=== PATIENT | male | born 1940 | race Caucasian/White ===

== ENCOUNTER 2022-12-13 11:37 | Observation (INO) ==
--- NOTE | 2022-12-13 14:03 | EKG ---
Test Reason : WEAKNESS Blood Pressure : */* mmHG Vent. Rate : 66 BPM Atrial Rate : 66 BPM P-R Int : 156 ms QRS Dur : 96 ms QT Int : 426 ms P-R-T Axes : 6 -46 48 degrees QTc Int : 446 ms Normal sinus rhythm Left anterior fascicular block Minimal voltage criteria for LVH, may be normal variant ( R in aVL ) Septal infarct , age undetermined Abnormal ECG No previous ECGs available Confirmed by Ronald Chand ([id number]) on 12/13/2022 9:09:40 PM Referred By: Confirmed By: Ronald Chand
[2022-12-13 14:23] LABS: BASOPHILS % (AUTO) 0.7 % (0.2-1.0); EOSINOPHILS # (AUTO) 0.2 x10^3/uL (0.0-0.2); HEMATOCRIT 28.9 % (42.0-54.0); HEMOGLOBIN 9.2 g/dL (13.5-18.0); LYMPHOCYTES # (AUTO) 1.1 X10^3/uL (1.3-2.9); LYMPHOCYTES % (AUTO) 19.2 % (21.0-51.0); MEAN CORPUSCULAR HEMOGLOBIN 20.6 pg (27.0-34.0); MEAN CORPUSCULAR HGB CONC 31.7 g/dL (33.0-35.0); MEAN CORPUSCULAR VOLUME 64.9 fL (80.0-100.0); MEAN PLATELET VOLUME 8.6 fL (7.4-11.0); MONOCYTES # (AUTO) 0.5 x10^3/uL (0.3-0.8); MONOCYTES % (AUTO) 8.9 % (0.0-13.0); NEUTROPHILS # (AUTO) 3.8 x10^3/uL (2.2-4.8); NEUTROPHILS % (AUTO) 68.2 % (42.0-75.0); RED BLOOD COUNT 4.45 X10^6/uL (4.7-6.0); RED CELL DISTRIBUTION WIDTH 18.9 % (11.6-16.5); WHITE BLOOD COUNT 5.6 X10^3/uL (3.6-10.0)
[2022-12-13 14:27] VITALS: BMI 25.4
[2022-12-13 14:37] LABS: ALANINE AMINOTRANSFERASE 30 Units/L (12-78); ALBUMIN 3.6 g/dL (3.4-5.0); ALKALINE PHOSPHATASE 100 Units/L (46-116); ASPARTATE AMINO TRANSFERASE 19 Units/L (15-37); BLOOD UREA NITROGEN 15 mg/dL (7-18); CARBON DIOXIDE 25.2 mmol/L (21-32); CHLORIDE 108 mmol/L (98-107); COR NA(FOR HYPERGLY) 145 mmol/L (136-145); CREATINE KINASE 32 Units/L (39-308); CREATININE 1.05 mg/dL (0.70-1.30); SODIUM 145 mmol/L (136-145); TOTAL PROTEIN 6.7 g/dL (6.4-8.2); eGFR NON BLACK RACES > 60 (>60)
[2022-12-13 14:51] LABS: PLATELET MORPHOLOGY COMMENT NORMAL (NORMAL)
[2022-12-13 14:55] LABS: ANISOCYTOSIS SLIGHT; HYPOCHROMASIA 2+; MICROCYTOSIS 2+; OVALOCYTES PRESENT
[2022-12-13] MEDS: PROTONIX INJ 40 MG VIAL IVP SCH ×2 (15:06→20:33)
[2022-12-13] MEDS: NS 1,000 ML IV 1,000 ML IV SCH (15:06)
[2022-12-13] MEDS: PEPCID 20 MG VIAL 20 MG in NS 50 ML IV 50 ML IV SCH ×2 (15:06→20:33)
[2022-12-13 18:37] LABS: BILIRUBIN,URINE NEGATIVE (NEGATIVE); BLOOD/HEMOGLOBIN,URINE NEGATIVE (NEGATIVE); GLUCOSE, URINE NEGATIVE (NEGATIVE); KETONES,URINE NEGATIVE (NEGATIVE); LEUKOCYTE ESTERASE ,URINE NEGATIVE (NEGATIVE); NITRITES,URINE NEGATIVE (NEGATIVE); PROTEIN,URINE NEGATIVE (NEGATIVE); UROBILINOGEN,URINE NORMAL (NORMAL)
[2022-12-13 18:38] LABS: APPEARANCE,URINE CLEAR (CLEAR); COLOR,URINE YELLOW (YELLOW)
--- NOTE | 2022-12-13 21:22 | RAD ---
HISTORYShortness of breath relevant Clinical InformationSTUDYCHEST, 1 VIEWCOMPARISONNoneFINDINGSMinimal, linear airspace infiltrates are visible in the lung bases. The lungs are otherwise well inflated and grossly clear. No pneumothorax. Normal heart size.IMPRESSIONSubsegmental atelectasis versus scarring versus mild developing infiltrate noted in the lung bases.Electronically signed by: Ronald Gerardo (Dec 13, 2022 21:21:23)
[2022-12-14] MEDS: NS 1,000 ML IV 1,000 ML IV SCH ×3 (03:41→18:40)
[2022-12-14 06:43] LABS: BASOPHILS # (AUTO) 0.1 X10^3/uL (0.0-0.1); BASOPHILS % (AUTO) 0.9 % (0.2-1.0); EOSINOPHILS # (AUTO) 0.2 x10^3/uL (0.0-0.2); EOSINOPHILS % (AUTO) 3.7 % (0.9-2.9); HEMATOCRIT 26.5 % (42.0-54.0); HEMOGLOBIN 8.3 g/dL (13.5-18.0); LYMPHOCYTES # (AUTO) 1.1 X10^3/uL (1.3-2.9); LYMPHOCYTES % (AUTO) 18.2 % (21.0-51.0); MEAN CORPUSCULAR HEMOGLOBIN 20.3 pg (27.0-34.0); MEAN CORPUSCULAR HGB CONC 31.3 g/dL (33.0-35.0); MEAN CORPUSCULAR VOLUME 64.9 fL (80.0-100.0); MEAN PLATELET VOLUME 8.2 fL (7.4-11.0); MONOCYTES # (AUTO) 0.6 x10^3/uL (0.3-0.8); MONOCYTES % (AUTO) 9.6 % (0.0-13.0); NEUTROPHILS % (AUTO) 67.6 % (42.0-75.0); RED BLOOD COUNT 4.09 X10^6/uL (4.7-6.0); RED CELL DISTRIBUTION WIDTH 18.7 % (11.6-16.5); WHITE BLOOD COUNT 5.9 X10^3/uL (3.6-10.0)
[2022-12-14 07:02] LABS: ALANINE AMINOTRANSFERASE 25 Units/L (12-78); ALBUMIN 3.1 g/dL (3.4-5.0); ALKALINE PHOSPHATASE 88 Units/L (46-116); ASPARTATE AMINO TRANSFERASE 18 Units/L (15-37); BLOOD UREA NITROGEN 13 mg/dL (7-18); CALCIUM 8.4 mg/dL (8.5-10.1); CARBON DIOXIDE 25.8 mmol/L (21-32); CHLORIDE 110 mmol/L (98-107); COR CA(FOR HYPOALB) 9.1 mg/dL (8.5-10.1); CREATININE 0.97 mg/dL (0.70-1.30); SODIUM 144 mmol/L (136-145); TOTAL PROTEIN 5.8 g/dL (6.4-8.2); eGFR NON BLACK RACES > 60 (>60)
[2022-12-14 07:09] LABS: PLATELET MORPHOLOGY COMMENT NORMAL (NORMAL)
[2022-12-14 07:10] LABS: ANISOCYTOSIS SLIGHT; HYPOCHROMASIA 2+; MICROCYTOSIS 2+; OVALOCYTES PRESENT
[2022-12-14] MEDS: PROTONIX INJ 40 MG VIAL IVP SCH ×2 (08:24→20:18)
[2022-12-14] MEDS: PEPCID 20 MG VIAL 20 MG in NS 50 ML IV 50 ML IV SCH ×2 (08:24→20:18)
[2022-12-14] MEDS ORDERED: LASIX PO PRN (09:13)
[2022-12-14] MEDS ORDERED: MAXZIDE 37.5/25 MG PO PRN (09:13)
--- NOTE | 2022-12-14 11:14 | RAD ---
HISTORYSOBSTUDYAP chestCOMPARISONApril 2022FINDINGSPersistent minimal atelectasis in the lower lungs with normal heart size and clear upper lobes.IMPRESSIONNo change.Electronically signed by: GIANFRANOC TORRES (Dec 14, 2022 11:10:42)
[2022-12-14] MEDS: LOPRESSOR TAB 25 MG PO SCH ×2 (11:58→20:17)
[2022-12-14] MEDS: ZYLOPRIM PO SCH (11:59)
[2022-12-14] MEDS: ZyrTEC TAB 10 MG PO SCH (11:59)
[2022-12-14] MEDS ORDERED: LEVSIN/MAALOX/LIDOC VISC PO PRN (12:10)
--- NOTE | 2022-12-14 19:00 | DR.H&P ---
H&P - History & Physical for Day of: H&P Date: 12/13/22 - Chief Complaint Chief Complaint: WEAKNESS, FATIGUE, DARK/TARRY STOOLS - History of Present Illness History of Present Illness: IS A 82 YEAR OLD PATIENT OF OURS. HE WAS A DIRECT ADMISSION, OBSERVATION STATUS, FOR EVALUATION AND TREATMENT OF WEAKNESS, ANEMIA, FATIGUE, HX GI BLEED. PATIENT REPORTS HAVING DARK, TARRY STOOLS FOR SEVERAL WEEKS. WEAKNESS AND FATIGUE HAS BEEN ONGOING AND WORSENING SINCE JULY. HE HAS A PMH OF HTN, GERD, GOUT, UT, TINNITIS, HX PROSTATE CANCER. SURGICAL HX INCLUDES: HERNIA REPAIR, PROSTECTOMY, ANEURYSM REPAIR, CARDIAC STENTS. HE DENIES RECENT COLONOSCOPY OR EGD. ON ADMISSION TO THE HOSPITAL, HIS VITALS WERE: 97.6-80-18-100%-158/72. LABS WERE OBTAINED. WBC 5.6, RBC 4.45, HGB 9.2, HCT 28.9, PLT COUNT 261, SODIUM 145, POTASSIUM 3.9, CHLORIDE 108, BUN 15, CREATININE 1.05, GLUCOSE 119, CALCIUM 9.0, AST 19, ALT 30, ALK PHOS 100, CREATINE KINASE 32, TROPONIN 6.5, TOTAL PROTEIN 6.5, ALBUMIN 3.6. URINALYSIS WAS UNREMARKABLE, HOWEVER, A CULTURE WAS SET UP. STOOL WAS POSITIVE FOR FECAL OCCULT BLOOD. A CHEST XRAY WAS OBTAINED. IT REVEALED: Subsegmental atelectasis versus scarring versus mild developing infiltrate noted in the lung bases. EKG REVEALED NORMAL SINUS RHYTHM WITH HR 66. HE WAS STARTED ON NORMAL SALINE AT 75 ML/HR, PEPCID 20MG IV Q12H, PROTONIX 40MG IV Q12H, AND GI COCKTAIL 10ML QID. WE WILL RESUME HIS HOME MEDICATIONS OF ALLOPURINOL, ZYRTEC, LASIX PRN, LOPRESSOR, CRESTOR, AND MAXZIDE PRN.. WE WILL TRANSFUSE PACKED RED BLOOD CELLS IF HIS HEMOGLOBIN FALLS BELOW 7.0. WE WILL HAVE PHYSICAL THERAPY EVALUATE AND WORK WITH HIM. OTHERWISE, WE WILL FOLLOW-UP WITH AM LABS AND CONTINUE TO MONITOR. TIME SPENT ON CLINICAL ASSESSMENT, REVIEWING LABS AND IMAGING, DECISION MAKING, AND DOCUMENTATION GREATER THAN 75 MINUTES. - Past Medical History Past Medical History: Coronary Artery Disease, GERD, Gout, Hypertension, UT Additional Medical History: TINNITUS, HX PROSTATE CANCER - Past Surgical History Surgical History: AAA Repair, Angioplasty/Stents Additional Surgical History: HERNIA REPAIR, PROSTECTOMY - Family History Family Medical History: Hypertension - Social History Does patient currently use any type of tobacco product: No Have you used tobacco products in the last 12 months: No Type of Tobacco Use: Cigarettes Does any household member use tobacco: No Alcohol Use: None Drug Use: None - Medications Home Medications: No Known Drug Allergies [NKDA] Allergy (Verified 12/13/22 14:19) CONTINUE taking the following medications allopurinol 100 mg tablet 3 tab PO QDAY 12/13/22 [History] aspirin 81 mg capsule 81 mg PO QDAY 12/13/22 [History] cetirizine 10 mg tablet (Zyrtec) 10 mg PO QDAY PRN 12/13/22 [History] esomeprazole magnesium 40 mg capsule,delayed release 1 cap PO QDAY 12/13/22 [History] famotidine 20 mg tablet 20 mg PO BID 12/13/22 [History] furosemide 20 mg tablet 20 mg PO QDAY PRN Edema 12/13/22 [History] metoprolol tartrate 25 mg tablet 1 tab PO BID PRN HTN 12/13/22 [History] rosuvastatin 20 mg tablet 1 tab PO QPM 12/13/22 [History] triamterene 37.5 mg-hydrochlorothiazide 25 mg tablet 1 tab PO QDAY PRN HTN 12/13/22 [History] - Review of Systems Constitutional: Weakness Eyes: No Symptoms Reported ENT: No Symptoms Reported Respiratory: No Symptoms Reported Cardiovascular: No Symptoms Reported Gastrointestinal: Melena Genitourinary: No Symptoms Reported Musculoskeletal: No Symptoms Reported Skin: No Symptoms Reported Neurological: Weakness - Physical Exam Vital Signs: Temperature 98.2 F Pulse Rate [Left Radial] 58 Respiratory Rate 18 Blood Pressure [Left Arm] 150/72 O2 Sat by Pulse Oximetry 98 Oriented: Normal Eyes: Normal Ear: Normal Nose: Normal Throat: Normal Respiratory: Diminished Throughout Cardiovascular: Normal : Normal Auscultation: Bowel Sounds: Normal Palpation: Normal Tenderness: Normal Skin: Normal Musculoskeletal: Normal Psychiatric: Normal Mood Description: Calm Affect: Normal Speech Pattern: Clear - Assessment/Plan (1) GI bleed Qualifiers: GI bleed type/associated pathology: melena Qualified Code(s): K92.1 - Melena Status: Acute Plan: ADMIT, MONITOR H&H, TRANSFUSE PRBC IF HGB FALLS BELOW 7.0, NORMAL SALINE AT 75 ML/HR, PEPCID 20MG IV Q12H, PROTONIX 40MG IV Q12H, AND GI COCKTAIL 10ML QID. WE WILL RESUME HIS HOME MEDICATIONS OF ALLOPURINOL, ZYRTEC, LASIX PRN, LOPRESSOR, CRESTOR, AND MAXZIDE PRN. (2) Anemia Qualifiers: Anemia type: iron deficiency Iron deficiency anemia type: chronic blood loss Qualified Code(s): D50.0 - Iron deficiency anemia secondary to blood loss (chronic) Status: Acute (3) Generalized weakness Status: Acute (4) Fatigue Qualifiers: Fatigue type: unspecified Qualified Code(s): R53.83 - Other fatigue Status: Acute (5) HTN (hypertension) Qualifiers: Hypertension type: primary hypertension Qualified Code(s): I10 - Essential (primary) hypertension Status: Chronic (6) GERD (gastroesophageal reflux disease) Qualifiers: Esophagitis presence: esophagitis presence not specified Qualified Code(s): K21.9 - Gastro-esophageal reflux disease without esophagitis Status: Chronic (7) Gout Qualifiers: Gout site: unspecified site Gout etiology: unspecified cause Chronicity: chronic Presence of tophus: without tophus Qualified Code(s): M1A.9XX0 - Chronic gout, unspecified, 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
[2022-12-14] MEDS: CRESTOR TAB 10 MG PO SCH (20:17)
[2022-12-14] MEDS: RESTORIL CAP 15 MG PO PRN (20:17)
[2022-12-15] MEDS: NS 1,000 ML IV 1,000 ML IV SCH ×4 (05:55→22:36)
[2022-12-15 06:17] LABS: BASOPHILS % (AUTO) 0.6 % (0.2-1.0); EOSINOPHILS # (AUTO) 0.2 x10^3/uL (0.0-0.2); EOSINOPHILS % (AUTO) 4.4 % (0.9-2.9); HEMOGLOBIN 8.2 g/dL (13.5-18.0); LYMPHOCYTES % (AUTO) 18.6 % (21.0-51.0); MEAN CORPUSCULAR HEMOGLOBIN 20.3 pg (27.0-34.0); MEAN CORPUSCULAR HGB CONC 31.4 g/dL (33.0-35.0); MEAN CORPUSCULAR VOLUME 64.6 fL (80.0-100.0); MEAN PLATELET VOLUME 8.1 fL (7.4-11.0); MONOCYTES # (AUTO) 0.6 x10^3/uL (0.3-0.8); MONOCYTES % (AUTO) 10.8 % (0.0-13.0); NEUTROPHILS # (AUTO) 3.6 x10^3/uL (2.2-4.8); NEUTROPHILS % (AUTO) 65.6 % (42.0-75.0); RED BLOOD COUNT 4.03 X10^6/uL (4.7-6.0); RED CELL DISTRIBUTION WIDTH 18.5 % (11.6-16.5); WHITE BLOOD COUNT 5.5 X10^3/uL (3.6-10.0)
[2022-12-15 06:34] LABS: ALANINE AMINOTRANSFERASE 23 Units/L (12-78); ALBUMIN 3.1 g/dL (3.4-5.0); ALKALINE PHOSPHATASE 89 Units/L (46-116); ASPARTATE AMINO TRANSFERASE 17 Units/L (15-37); BLOOD UREA NITROGEN 10 mg/dL (7-18); CALCIUM 8.6 mg/dL (8.5-10.1); CARBON DIOXIDE 25.6 mmol/L (21-32); CHLORIDE 109 mmol/L (98-107); COR CA(FOR HYPOALB) 9.3 mg/dL (8.5-10.1); SODIUM 143 mmol/L (136-145); TOTAL PROTEIN 5.8 g/dL (6.4-8.2); eGFR NON BLACK RACES > 60 (>60)
[2022-12-15 06:41] LABS: ANISOCYTOSIS SLIGHT; HYPOCHROMASIA 2+; MICROCYTOSIS 2+; OVALOCYTES PRESENT; PLATELET MORPHOLOGY COMMENT NORMAL (NORMAL)
[2022-12-15] MEDS: PROTONIX INJ 40 MG VIAL IVP SCH ×2 (08:20→20:59)
[2022-12-15] MEDS: PEPCID 20 MG VIAL 20 MG in NS 50 ML IV 50 ML IV SCH ×2 (08:20→21:00)
[2022-12-15] MEDS: ZyrTEC TAB 10 MG PO SCH (08:20)
[2022-12-15] MEDS: LOPRESSOR TAB 25 MG PO SCH ×3 (08:20→21:00)
[2022-12-15] MEDS: ZYLOPRIM PO SCH (08:20)
--- NOTE | 2022-12-15 08:50 | RAD ---
HISTORYSOB weaknessSTUDYAP chestCOMPARISONApril 2022FINDINGSThere is no change in appearance of heart or lungs. Linear density in the right base is consistent with atelectasis or fibrotic scar.IMPRESSIONNo change/new abnormality since 1 day prior.Electronically signed by: GIANFRANCO TORRES (Dec 15, 2022 08:49:41)
--- NOTE | 2022-12-15 16:09 | DR.CONSULT ---
CONSULT Consultation for Day of: Date: 12/15/22 Chief Complaint Chief Complaint: Weakness Allergies Allergies Allergy/AdvReac Type Severity Reaction Status Date / Time No Known Drug Allergies Allergy Verified 12/13/22 14:19 [NKDA] History of Present Illness History of Present Illness: 82 year old male with recent onset of weakness. Discovered to have hemoglobin of 8.2. Last EGD and colonoscopy was 2017 .History of endovascular aortic repair in 2007. History of AL and two coronary stents. History of multiple lower extremity stents placed . History of gout, reflux, hypertension, and hyperlipidemia. Denies blood in stool. Denies vomiting of blood Past Medical History Past Medical History: Coronary Artery Disease, GERD, Gout, Hypertension and AL Additional Medical History: TINNITUS, HX PROSTATE CANCER Past Surgical History Surgical History: AAA Repair and Angioplasty/Stents Additional Surgical History: HERNIA REPAIR, PROSTECTOMY Family History Family Medical History: Hypertension Social History Does patient currently use any type of tobacco product: No Have you used tobacco products in the last 12 months: No Type of Tobacco Use: Cigarettes Does any household member use tobacco: No Alcohol Use: None Drug Use: None Medications Home Medications: No Known Drug Allergies [NKDA] Allergy (Verified 12/13/22 14:19) CONTINUE taking the following medications allopurinol 100 mg tablet 3 tab PO QDAY 12/13/22 [History] aspirin 81 mg capsule 81 mg PO QDAY 12/13/22 [History] cetirizine 10 mg tablet (Zyrtec) 10 mg PO QDAY PRN 12/13/22 [History] esomeprazole magnesium 40 mg capsule,delayed release 1 cap PO QDAY 12/13/22 [History] famotidine 20 mg tablet 20 mg PO BID 12/13/22 [History] furosemide 20 mg tablet 20 mg PO QDAY PRN Edema 12/13/22 [History] metoprolol tartrate 25 mg tablet 1 tab PO BID PRN HTN 12/13/22 [History] rosuvastatin 20 mg tablet 1 tab PO QPM 12/13/22 [History] triamterene 37.5 mg-hydrochlorothiazide 25 mg tablet 1 tab PO QDAY PRN HTN 12/13/22 [History] Review of Systems Constitutional: See HPI Eyes: No Symptoms Reported ENT: No Symptoms Reported Respiratory: No Symptoms Reported Cardiovascular: See HPI Gastrointestinal: See HPI Genitourinary: No Symptoms Reported Musculoskeletal: No Symptoms Reported Skin: No Symptoms Reported Neurological: No Symptoms Reported Physical Exam Vital Signs: Temperature 98.0 F Pulse Rate [Left Radial] 67 Respiratory Rate 18 Blood Pressure [Left Arm] 149/73 O2 Sat by Pulse Oximetry 98 Oriented: Normal, Time, Person and Place Eyes: Normal Ear: Normal Nose: Normal Throat: Normal Respiratory: Clear Throughout Cardiovascular: Normal : Normal Auscultation: Bowel Sounds: Normal Palpation: Normal Tenderness: Normal Skin: Normal Musculoskeletal: Normal Mood Description: Calm Affect: Normal Speech Pattern: Clear Plan (1) GI bleed: Status: Acute Qualifiers: GI bleed type/associated pathology: melena Qualified Code(s): K92.1 - Melena Plan: Plan EGD in AM (2) Anemia: Status: Acute Qualifiers: Anemia type: iron deficiency Iron deficiency anemia type: chronic blood loss Qualified Code(s): D50.0 - Iron deficiency anemia secondary to blood loss (chronic) (3) Generalized weakness: Status: Acute (4) Fatigue: Status: Acute Qualifiers: Fatigue type: unspecified Qualified Code(s): R53.83 - Other fatigue (5) HTN (hypertension): Status: Chronic Qualifiers: Hypertension type: primary hypertension Qualified Code(s): I10 - Essential (primary) hypertension (6) GERD (gastroesophageal reflux disease): Status: Chronic Qualifiers: Esophagitis presence: esophagitis presence not specified Qualified Code(s): K21.9 - Gastro-esophageal reflux disease without esophagitis (7) Gout: Status: Chronic Qualifiers: Gout site: unspecified site Gout etiology: unspecified cause Chronicity: chronic Presence of tophus: without tophus Qualified Code(s): M1A.9XX0 - Chronic gout, unspecified, without tophus (tophi) (8) History of AAA (abdominal aortic aneurysm) repair: Status: Chronic
[2022-12-15] MEDS: RESTORIL CAP 15 MG PO PRN (20:59)
[2022-12-15] MEDS: CRESTOR TAB 10 MG PO SCH (21:00)
[2022-12-16] MEDS: NS 1,000 ML IV 1,000 ML IV SCH ×2 (05:36→20:56)
[2022-12-16 06:17] LABS: BASOPHILS # (AUTO) 0.1 X10^3/uL (0.0-0.1); EOSINOPHILS # (AUTO) 0.3 x10^3/uL (0.0-0.2); EOSINOPHILS % (AUTO) 5.3 % (0.9-2.9); HEMOGLOBIN 8.2 g/dL (13.5-18.0); LYMPHOCYTES # (AUTO) 1.2 X10^3/uL (1.3-2.9); LYMPHOCYTES % (AUTO) 22.8 % (21.0-51.0); MEAN CORPUSCULAR HEMOGLOBIN 20.3 pg (27.0-34.0); MEAN CORPUSCULAR HGB CONC 31.6 g/dL (33.0-35.0); MEAN CORPUSCULAR VOLUME 64.1 fL (80.0-100.0); MEAN PLATELET VOLUME 8.8 fL (7.4-11.0); MONOCYTES # (AUTO) 0.6 x10^3/uL (0.3-0.8); MONOCYTES % (AUTO) 11.6 % (0.0-13.0); NEUTROPHILS # (AUTO) 3.1 x10^3/uL (2.2-4.8); NEUTROPHILS % (AUTO) 59.3 % (42.0-75.0); RED BLOOD COUNT 4.05 X10^6/uL (4.7-6.0); RED CELL DISTRIBUTION WIDTH 18.8 % (11.6-16.5); WHITE BLOOD COUNT 5.1 X10^3/uL (3.6-10.0)
[2022-12-16 06:39] LABS: ALANINE AMINOTRANSFERASE 22 Units/L (12-78); ALKALINE PHOSPHATASE 94 Units/L (46-116); ASPARTATE AMINO TRANSFERASE 28 Units/L (15-37); BLOOD UREA NITROGEN 11 mg/dL (7-18); CALCIUM 8.7 mg/dL (8.5-10.1); CARBON DIOXIDE 24.9 mmol/L (21-32); CHLORIDE 109 mmol/L (98-107); COR CA(FOR HYPOALB) 9.5 mg/dL (8.5-10.1); CREATININE 0.97 mg/dL (0.70-1.30); SODIUM 142 mmol/L (136-145); TOTAL PROTEIN 5.8 g/dL (6.4-8.2); eGFR NON BLACK RACES > 60 (>60)
[2022-12-16 06:58] LABS: PLATELET MORPHOLOGY COMMENT NORMAL (NORMAL)
[2022-12-16 06:59] LABS: HYPOCHROMASIA 2+
[2022-12-16 07:00] LABS: ANISOCYTOSIS SLIGHT; MICROCYTOSIS 2+; OVALOCYTES PRESENT
[2022-12-16] MEDS: PEPCID 20 MG VIAL 20 MG in NS 50 ML IV 50 ML IV SCH ×2 (08:26→20:57)
[2022-12-16] MEDS: PROTONIX INJ 40 MG VIAL IVP SCH ×2 (08:26→20:56)
[2022-12-16] MEDS: LOPRESSOR TAB 25 MG PO SCH ×2 (08:43→20:57)
[2022-12-16] MEDS: ZYLOPRIM PO SCH (08:44)
[2022-12-16] MEDS: ZyrTEC TAB 10 MG PO SCH (08:44)
--- NOTE | 2022-12-16 08:44 | RAD ---
HISTORYWeakness SOBSTUDYAP chestCOMPARISONApril 2022FINDINGSNo change identified. Heart size normal with minimal fibrosis/linear atelectasis at right base. There is no evidence for developing pneumonia or CHF.IMPRESSIONNo change.Electronically signed by: GIAFNRANCO TORRES (Dec 16, 2022 08:43:27)
[2022-12-16] MEDS ORDERED: NS 500 ML IV 500 ML IV ONE (10:51)
[2022-12-16] MEDS ORDERED: DIPRIVAN VIAL 20 ML ONE (10:57)
[2022-12-16] MEDS ORDERED: DULCOLAX TAB EC 5 MG PO ONE (11:23)
--- NOTE | 2022-12-16 11:28 | OR.IMMED ---
IMMEDIATE POST-OP NOTE Immediate Post-Op Note Pre-Op Diagnosis: Anemia and weakness Post-Op Diagnosis: Normal EGD Procedure: EGD with biopsy Description of Procedure: see operative summary Surgeon/Inspecting Supervisor: Fabienne Findings: Normal esophagus, stomach and duodenum Estimated Blood Loss: none Progress Notes: Return to floor, clear liquid diet and bowel prep, plan colonoscopy.
[2022-12-16] MEDS ORDERED: SUPREP BOWEL PREP KIT PO SCH (11:30)
--- NOTE | 2022-12-16 11:33 | PCM.PROG ---
Progress Note - Progress Note for Day of Date of Exam: 12/15/22 - Subjective Subjective: IS CURRENTLY OBSERVATION STATUS FOR TREATMENT OF GI BLEED, ANEMIA, GENERALIZED WEAKNESS, AND FATIGUE. HE HAS A PMH OF HTN, GERD, GOUT, AND HX OF AAA REPAIR. HE HAS REPORTED HAVING DARK, TARRY STOOLS FOR THE PAST FEW WEEKS. TODAY, HE IS ALERT AND ORIENTED, LYING IN BED ON MORNING ROUNDS. HE CONTINUES TO COMPLAIN OF WEAKNESS AND FATIGUE, BUT DOES REPORT SLIGHT IMPROVEMENT IN SYMPTOMS SINCE ADMISSION. HE IS ABLE TO ANSWER QUESTIONS AND FOLLOW COMMANDS APPROPRIATELY. ON EXAMINATION, HEART IS REGULAR IN RATE AND RHYTHM. BILATERAL LUNGS ARE NOTED WITH DIMINISHED LUNG SOUNDS THROUGHOUT. ABDOMEN IS ROUND, SOFT, AND NON-TENDER WITH NORMAL BOWEL SOUNDS NOTED IN ALL QUADRANTS. GOOD MOVEMENT NOTED IN ALL EXTREMITIES WITH NO EDEMA NOTED. HIS VITALS THIS MORNING ARE: 98.6-60-18-98%RA-174/84. LABS WERE OBTAINED. WBC 5.5, RBC 4.03, HGB 8.2, HCT 26.0, PLT COUNT 207, SODIUM 143, POTASSIUM 3.8, CHLORIDE 109, BUN 10, CREATININE 1.00, GLUCOSE 91, CALCIUM 8.6, AST 17, ALT 23, ALK PHOS 89, TOTAL PROTEIN 5.8, ALBUMIN 3.1. STOOL IS POSITIVE FOR OCCULT BLOOD. A URINE CULTURE IS PENDING. HE IS CURRENTLY RECEIVING NORMAL SALINE AT 75 ML/HR, PEPCID 20MG IV Q12H, PROTONIX 40MG IV Q12H, AND GI COCKTAIL 10ML QID. HIS HOME MEDICATIONS OF ALLOPURINOL, ZYRTEC, LASIX PRN, LOPRESSOR, CRESTOR, AND MAXZIDE PRN WERE ALSO RESUMED. WE WILL TRANSFUSE PACKED RED BLOOD CELLS IF HIS HEMOGLOBIN FALLS BELOW 7.0. WE WILL HAVE PHYSICAL THERAPY EVALUATE AND WORK WITH HIM. WE WILL ALSO CONSULT GENERAL SURGERY FOR POSSIBLE ENDOSCOPY. OTHERWISE, WE WILL FOLLOW-UP WITH AM LABS AND CONTINUE TO MONITOR. TIME SPENT ON CLINICAL ASSESSMENT, REVIWING LABS AND IMAGING, DECISION MAKING, AND DOCUMENTATION GREATER THAN 45 MINUTES. - Past Medical Family Social History Past Med/Fam/Surg Hx: No changes since H&P Allergies: Allergies No Known Drug Allergies [NKDA] Allergy (Verified 12/13/22 14:19) - Review of Systems ROS: No change since H&P - Vital Signs and I&O's Vital Signs: Temperature 97.9 F Pulse Rate [Left Radial] 61 Respiratory Rate 18 Blood Pressure [Left Arm] 140/67 O2 Sat by Pulse Oximetry 100 Intake and Output: Intake & Output 12/13/22 12/14/22 12/15/22 12/16/22 11:59 11:59 11:59 11:59 Intake Total 2481 / 2481 3683 / 3683 3264 / 3264 Balance 2481 / 2481 3683 / 3683 3264 / 3264 - Physical Exam Oriented: Normal, Time, Person, Place Eyes: Normal Ear: Normal Nose: Normal Throat: Normal Respiratory: Diminished Cardiovascular: Normal : Normal Auscultation: Bowel Sounds: Normal Palpation: Normal Tenderness: Normal Skin: Normal Musculoskeletal: Normal Psychiatric: Normal Mood Description: Calm Affect: Normal Speech Pattern: Clear - Laboratory and Diagnostics Result Diagrams: 12/16/22 05:32 12/16/22 05:32 Labs: 12/13/22 18:18 Urine,Clean Catch Urine Culture - Final Laboratory WBC 5.1 X10^3/uL (3.6-10.0) 12/16/22 05:32 RBC 4.05 X10^6/uL (4.7-6.0) L 12/16/22 05:32 Hgb 8.2 g/dL (13.5-18.0) L 12/16/22 05:32 Hct 26.0 % (42.0-54.0) L 12/16/22 05:32 MCV 64.1 fL (80.0-100.0) L 12/16/22 05:32 MCH 20.3 pg (27.0-34.0) L 12/16/22 05:32 MCHC 31.6 g/dL (33.0-35.0) L 12/16/22 05:32 RDW 18.8 % (11.6-16.5) H 12/16/22 05:32 Plt Count 199 X10^3/uL (150.0-450.0) 12/16/22 05:32 Plt Count Comment Adequate (ADEQUATE) 12/16/22 05:32 MPV 8.8 fL (7.4-11.0) 12/16/22 05:32 Neut % (Auto) 59.3 % (42.0-75.0) 12/16/22 05:32 Lymph % (Auto) 22.8 % (21.0-51.0) 12/16/22 05:32 [place] % (Auto) 11.6 % (0.0-13.0) 12/16/22 05:32 Eos % (Auto) 5.3 % (0.9-2.9) H 12/16/22 05:32 Baso % (Auto) 1.0 % (0.2-1.0) 12/16/22 05:32 Neut # (Auto) 3.1 x10^3/uL (2.2-4.8) 12/16/22 05:32 Lymph # (Auto) 1.2 X10^3/uL (1.3-2.9) L 12/16/22 05:32 Walsh # (Auto) 0.6 x10^3/uL (0.3-0.8) 12/16/22 05:32 Eos # (Auto) 0.3 x10^3/uL (0.0-0.2) H 12/16/22 05:32 Baso # (Auto) 0.1 X10^3/uL (0.0-0.1) 12/16/22 05:32 Absolute Nucleated RBC 0.1 /100WBC 12/16/22 05:32 Plt Morphology Comment Normal (NORMAL) 12/16/22 05:32 RBC Morphology Abnormal (NORMAL) 12/16/22 05:32 Hypochromasia 2+ A 12/16/22 05:32 Anisocytosis Slight A 12/16/22 05:32 Microcytosis 2+ A 12/16/22 05:32 Ovalocytes Present 12/16/22 05:32 Sodium 142 mmol/L (136-145) 12/16/22 05:32 Corrected Sodium TNP 12/16/22 05:32 Potassium 3.8 mmol/L (3.5-5.1) 12/16/22 05:32 Chloride 109 mmol/L (98-107) H 12/16/22 05:32 Carbon Dioxide 24.9 mmol/L (21-32) 12/16/22 05:32 BUN 11 mg/dL (7-18) 12/16/22 05:32 Creatinine 0.97 mg/dL (0.70-1.30) 12/16/22 05:32 Est GFR (MDRD) Af Amer > 60 (>60) 12/16/22 05:32 Est GFR (MDRD) Non-Af > 60 (>60) 12/16/22 05:32 Glucose 98 mg/dL (65-99) 12/16/22 05:32 Calcium 8.7 mg/dL (8.5-10.1) 12/16/22 05:32 Corrected Calcium 9.5 mg/dL (8.5-10.1) 12/16/22 05:32 Total Bilirubin 0.30 mg/dL (0.2-1.0) 12/16/22 05:32 AST 28 Units/L (15-37) 12/16/22 05:32 ALT 22 Units/L (12-78) 12/16/22 05:32 Alkaline Phosphatase 94 Units/L (46-116) 12/16/22 05:32 Creatine Kinase 32 Units/L (39-308) L 12/13/22 13:54 Troponin I High Sens 6.5 ng/L (4.0-60.0) 12/13/22 13:54 Total Protein 5.8 g/dL (6.4-8.2) L 12/16/22 05:32 Albumin 3.0 g/dL (3.4-5.0) L 12/16/22 05:32 Globulin 2.8 g/dL (2.5-4.5) 12/16/22 05:32 Albumin/Globulin Ratio 1.1 Ratio (1.1-2.1) 12/16/22 05:32 Specimen Type Clean catch urine 12/13/22 18:18 Urine Color Yellow (YELLOW) 12/13/22 18:18 Urine Appearance Clear (CLEAR) 12/13/22 18:18 Urine pH 6.0 (5.0 - 8.0) 12/13/22 18:18 Ur Specific [place] 1.025 (1.000-1.030) 12/13/22 18:18 Urine Protein Negative (NEGATIVE) 12/13/22 18:18 Urine Glucose (UA) Negative (NEGATIVE) 12/13/22 18:18 Urine Ketones Negative (NEGATIVE) 12/13/22 18:18 Urine Blood Negative (NEGATIVE) 12/13/22 18:18 Urine Nitrite Negative (NEGATIVE) 12/13/22 18:18 Urine Bilirubin Negative (NEGATIVE) 12/13/22 18:18 Urine Urobilinogen Normal (NORMAL) 12/13/22 18:18 Ur Leukocyte Esterase Negative (NEGATIVE) 12/13/22 18:18 Urine RBC Cancelled 12/13/22 18:18 Urine WBC Cancelled 12/13/22 18:18 Ur Squamous Epith Cells Cancelled 12/13/22 18:18 Ur Transition Epith Cell Cancelled 12/13/22 18:18 Ur Renal Epithelial Cell Cancelled 12/13/22 18:18 Calcium Oxalate Crystal Cancelled 12/13/22 18:18 Cystine Crystals Cancelled 12/13/22 18:18 Uric Acid Crystals Cancelled 12/13/22 18:18 Triple Phos Crystals Cancelled 12/13/22 18:18 Tyrosine Crystals Cancelled 12/13/22 18:18 Other Crystals Cancelled 12/13/22 18:18 Amorphous Sediment Cancelled 12/13/22 18:18 Urine Bacteria Cancelled 12/13/22 18:18 Hyaline Casts Cancelled 12/13/22 18:18 Granular Casts Cancelled 12/13/22 18:18 Fine Granular Casts Cancelled 12/13/22 18:18 Coarse Granular Casts Cancelled 12/13/22 18:18 RBC Casts Cancelled 12/13/22 18:18 Other Casts Cancelled 12/13/22 18:18 Urine Mucus Cancelled 12/13/22 18:18 Urine Trichomonas Cancelled 12/13/22 18:18 Urine Yeast Cancelled 12/13/22 18:18 Urine Sperm Cancelled 12/13/22 18:18 Ur Culture Indicated? Cancelled 12/13/22 18:18 Stl Occult Blood (IFOB) Positive (NEGATIVE) A 12/14/22 08:29 - Plan (1) GI bleed Status: Acute Qualifiers: GI bleed type/associated pathology: melena Qualified Code(s): K92.1 - Melena Plan: ADMIT, PEPCID 20MG IV Q12H, PROTONIX 40MG IV Q12H, AND GI COCKTAIL 10ML QID. HOME MEDICATIONS OF ALLOPURINOL, ZYRTEC, LASIX PRN, LOPRESSOR, CRESTOR, AND MAXZIDE PRN RESUMED. CONSULT GI (2) Anemia Status: Acute Qualifiers: Anemia type: iron deficiency Iron deficiency anemia type: chronic blood loss Qualified Code(s): D50.0 - Iron deficiency anemia secondary to blood loss (chronic) (3) Generalized weakness Status: Acute (4) Fatigue Status: Acute Qualifiers: Fatigue type: unspecified Qualified Code(s): R53.83 - Other fatigue (5) HTN (hypertension) Status: Chronic Qualifiers: Hypertension type: primary hypertension Qualified Code(s): I10 - Essential (primary) hypertension (6) GERD (gastroesophageal reflux disease) Status: Chronic Qualifiers: Esophagitis presence: esophagitis presence not specified Qualified Code(s): K21.9 - Gastro-esophageal reflux disease without esophagitis (7) Gout Status: Chronic Qualifiers: Gout site: unspecified site Gout etiology: unspecified cause Chronicity: chronic Presence of tophus: without tophus Qualified Code(s): M1A.9XX0 - Chronic gout, unspecified, without tophus (tophi) (8) History of AAA (abdominal aortic aneurysm) repair Status: Chronic
--- NOTE | 2022-12-16 11:37 | PCM.PROG ---
Progress Note - Progress Note for Day of Date of Exam: 12/16/22 - Subjective Subjective: IS CURRENTLY OBSERVATION STATUS FOR TREATMENT OF GI BLEED, ANEMIA, GENERALIZED WEAKNESS, AND FATIGUE. HE HAS A PMH OF HTN, GERD, GOUT, AND HX OF AAA REPAIR. HE HAS REPORTED HAVING DARK, TARRY STOOLS FOR THE PAST FEW WEEKS. TODAY, HE IS ALERT AND ORIENTED, LYING IN BED ON MORNING ROUNDS. HE CONTINUES TO COMPLAIN OF WEAKNESS AND FATIGUE, BUT DOES REPORT SLIGHT IMPROVEMENT IN SYMPTOMS SINCE ADMISSION. HE IS ABLE TO ANSWER QUESTIONS AND FOLLOW COMMANDS APPROPRIATELY. ON EXAMINATION, HEART IS REGULAR IN RATE AND RHYTHM. BILATERAL LUNGS ARE NOTED WITH DIMINISHED LUNG SOUNDS THROUGHOUT. ABDOMEN IS ROUND, SOFT, AND NON-TENDER WITH NORMAL BOWEL SOUNDS NOTED IN ALL QUADRANTS. GOOD MOVEMENT NOTED IN ALL EXTREMITIES WITH NO EDEMA NOTED. HIS VITALS THIS MORNING ARE: 97.9-61-18-100%-140/67. LABS WERE OBTAINED. WBC 5.1, RBC 4.05, HGB 8.2, HCT 26.0, PLT COUNT 199, SODIUM 142, POTASSIUM 3.8, CHLORIDE 109, BUN 11, CREATININE 0.97, GLUCOSE 98, CALCIUM 8.7, TOTAL BILI 0.30, AST 28, ALT 22, ALK PHOS 94, TOTAL PROTEIN 5.8, ALBUMIN 3.0. STOOL IS POSITIVE FOR OCCULT BLOOD. URINE CULTURE IS NEGATIVE. HE IS CURRENTLY RECEIVING NORMAL SALINE AT 75 ML/HR, PEPCID 20MG IV Q12H, PROTONIX 40MG IV Q12H, AND GI COCKTAIL 10ML QID. HIS HOME MEDICATIONS OF ALLOPURINOL, ZYRTEC, LASIX PRN, LOPRESSOR, CRESTOR, AND MAXZIDE PRN WERE ALSO RESUMED. WE WILL TRANSFUSE PACKED RED BLOOD CELLS IF HIS HEMOGLOBIN FALLS BELOW 7.0. WE WILL HAVE PHYSICAL THERAPY EVALUATE AND WORK WITH HIM. WE CONSULTED , GENERAL SURGEON. HE PLANS FOR ENDOSCOPY TODAY. WE ARE IN AGREEMENT WITH PLANS. OTHERWISE, WE WILL FOLLOW-UP WITH AM LABS AND CONTINUE TO MONITOR. TIME SPENT ON CLINICAL ASSESSMENT, REVIWING LABS AND IMAGING, DECISION MAKING, AND DOCUMENTATION GREATER THAN 45 MINUTES. - Past Medical Family Social History Past Med/Fam/Surg Hx: No changes since H&P Allergies: Allergies No Known Drug Allergies [NKDA] Allergy (Verified 12/13/22 14:19) - Review of Systems ROS: No change since H&P - Vital Signs and I&O's Vital Signs: Temperature 97.9 F Pulse Rate [Left Radial] 61 Respiratory Rate 18 Blood Pressure [Left Arm] 140/67 O2 Sat by Pulse Oximetry 100 Intake and Output: Intake & Output 12/13/22 12/14/22 12/15/22 12/16/22 11:59 11:59 11:59 11:59 Intake Total 2481 / 2481 3683 / 3683 3264 / 3264 Balance 2481 / 2481 3683 / 3683 3264 / 3264 - Physical Exam Oriented: Normal, Time, Person, Place Eyes: Normal Ear: Normal Nose: Normal Throat: Normal Respiratory: Diminished Cardiovascular: Normal : Normal Auscultation: Bowel Sounds: Normal Tenderness: Normal Skin: Normal Musculoskeletal: Normal Psychiatric: Normal Mood Description: Calm Affect: Normal Speech Pattern: Clear - Laboratory and Diagnostics Result Diagrams: 12/16/22 05:32 12/16/22 05:32 Labs: 12/13/22 18:18 Urine,Clean Catch Urine Culture - Final Laboratory WBC 5.1 X10^3/uL (3.6-10.0) 12/16/22 05:32 RBC 4.05 X10^6/uL (4.7-6.0) L 12/16/22 05:32 Hgb 8.2 g/dL (13.5-18.0) L 12/16/22 05:32 Hct 26.0 % (42.0-54.0) L 12/16/22 05:32 MCV 64.1 fL (80.0-100.0) L 12/16/22 05:32 MCH 20.3 pg (27.0-34.0) L 12/16/22 05:32 MCHC 31.6 g/dL (33.0-35.0) L 12/16/22 05:32 RDW 18.8 % (11.6-16.5) H 12/16/22 05:32 Plt Count 199 X10^3/uL (150.0-450.0) 12/16/22 05:32 Plt Count Comment Adequate (ADEQUATE) 12/16/22 05:32 MPV 8.8 fL (7.4-11.0) 12/16/22 05:32 Neut % (Auto) 59.3 % (42.0-75.0) 12/16/22 05:32 Lymph % (Auto) 22.8 % (21.0-51.0) 12/16/22 05:32 Greenlee % (Auto) 11.6 % (0.0-13.0) 12/16/22 05:32 Eos % (Auto) 5.3 % (0.9-2.9) H 12/16/22 05:32 Baso % (Auto) 1.0 % (0.2-1.0) 12/16/22 05:32 Neut # (Auto) 3.1 x10^3/uL (2.2-4.8) 12/16/22 05:32 Lymph # (Auto) 1.2 X10^3/uL (1.3-2.9) L 12/16/22 05:32 Greenlee # (Auto) 0.6 x10^3/uL (0.3-0.8) 12/16/22 05:32 Eos # (Auto) 0.3 x10^3/uL (0.0-0.2) H 12/16/22 05:32 Baso # (Auto) 0.1 X10^3/uL (0.0-0.1) 12/16/22 05:32 Absolute Nucleated RBC 0.1 /100WBC 12/16/22 05:32 Plt Morphology Comment Normal (NORMAL) 12/16/22 05:32 RBC Morphology Abnormal (NORMAL) 12/16/22 05:32 Hypochromasia 2+ A 12/16/22 05:32 Anisocytosis Slight A 12/16/22 05:32 Microcytosis 2+ A 12/16/22 05:32 Ovalocytes Present 12/16/22 05:32 Sodium 142 mmol/L (136-145) 12/16/22 05:32 Corrected Sodium TNP 12/16/22 05:32 Potassium 3.8 mmol/L (3.5-5.1) 12/16/22 05:32 Chloride 109 mmol/L (98-107) H 12/16/22 05:32 Carbon Dioxide 24.9 mmol/L (21-32) 12/16/22 05:32 BUN 11 mg/dL (7-18) 12/16/22 05:32 Creatinine 0.97 mg/dL (0.70-1.30) 12/16/22 05:32 Est GFR (MDRD) Af Amer > 60 (>60) 12/16/22 05:32 Est GFR (MDRD) Non-Af > 60 (>60) 12/16/22 05:32 Glucose 98 mg/dL (65-99) 12/16/22 05:32 Calcium 8.7 mg/dL (8.5-10.1) 12/16/22 05:32 Corrected Calcium 9.5 mg/dL (8.5-10.1) 12/16/22 05:32 Total Bilirubin 0.30 mg/dL (0.2-1.0) 12/16/22 05:32 AST 28 Units/L (15-37) 12/16/22 05:32 ALT 22 Units/L (12-78) 12/16/22 05:32 Alkaline Phosphatase 94 Units/L (46-116) 12/16/22 05:32 Creatine Kinase 32 Units/L (39-308) L 12/13/22 13:54 Troponin I High Sens 6.5 ng/L (4.0-60.0) 12/13/22 13:54 Total Protein 5.8 g/dL (6.4-8.2) L 12/16/22 05:32 Albumin 3.0 g/dL (3.4-5.0) L 12/16/22 05:32 Globulin 2.8 g/dL (2.5-4.5) 12/16/22 05:32 Albumin/Globulin Ratio 1.1 Ratio (1.1-2.1) 12/16/22 05:32 Specimen Type Clean catch urine 12/13/22 18:18 Urine Color Yellow (YELLOW) 12/13/22 18:18 Urine Appearance Clear (CLEAR) 12/13/22 18:18 Urine pH 6.0 (5.0 - 8.0) 12/13/22 18:18 Ur Specific [place] 1.025 (1.000-1.030) 12/13/22 18:18 Urine Protein Negative (NEGATIVE) 12/13/22 18:18 Urine Glucose (UA) Negative (NEGATIVE) 12/13/22 18:18 Urine Ketones Negative (NEGATIVE) 12/13/22 18:18 Urine Blood Negative (NEGATIVE) 12/13/22 18:18 Urine Nitrite Negative (NEGATIVE) 12/13/22 18:18 Urine Bilirubin Negative (NEGATIVE) 12/13/22 18:18 Urine Urobilinogen Normal (NORMAL) 12/13/22 18:18 Ur Leukocyte Esterase Negative (NEGATIVE) 12/13/22 18:18 Urine RBC Cancelled 12/13/22 18:18 Urine WBC Cancelled 12/13/22 18:18 Ur Squamous Epith Cells Cancelled 12/13/22 18:18 Ur Transition Epith Cell Cancelled 12/13/22 18:18 Ur Renal Epithelial Cell Cancelled 12/13/22 18:18 Calcium Oxalate Crystal Cancelled 12/13/22 18:18 Cystine Crystals Cancelled 12/13/22 18:18 Uric Acid Crystals Cancelled 12/13/22 18:18 Triple Phos Crystals Cancelled 12/13/22 18:18 Tyrosine Crystals Cancelled 12/13/22 18:18 Other Crystals Cancelled 12/13/22 18:18 Amorphous Sediment Cancelled 12/13/22 18:18 Urine Bacteria Cancelled 12/13/22 18:18 Hyaline Casts Cancelled 12/13/22 18:18 Granular Casts Cancelled 12/13/22 18:18 Fine Granular Casts Cancelled 12/13/22 18:18 Coarse Granular Casts Cancelled 12/13/22 18:18 RBC Casts Cancelled 12/13/22 18:18 Other Casts Cancelled 12/13/22 18:18 Urine Mucus Cancelled 12/13/22 18:18 Urine Trichomonas Cancelled 12/13/22 18:18 Urine Yeast Cancelled 12/13/22 18:18 Urine Sperm Cancelled 12/13/22 18:18 Ur Culture Indicated? Cancelled 12/13/22 18:18 Stl Occult Blood (IFOB) Positive (NEGATIVE) A 12/14/22 08:29 - Plan (1) GI bleed Status: Acute Qualifiers: GI bleed type/associated pathology: melena Qualified Code(s): K92.1 - Melena Plan: PEPCID 20MG IV Q12H, PROTONIX 40MG IV Q12H, AND GI COCKTAIL 10ML QID. HOME MEDICATIONS OF ALLOPURINOL, ZYRTEC, LASIX PRN, LOPRESSOR, CRESTOR, AND MAXZIDE PRN RESUMED. CONSULT GI (2) Anemia Status: Acute Qualifiers: Anemia type: iron deficiency Iron deficiency anemia type: chronic blood loss Qualified Code(s): D50.0 - Iron deficiency anemia secondary to blood loss (chronic) (3) Generalized weakness Status: Acute (4) Fatigue Status: Acute Qualifiers: Fatigue type: unspecified Qualified Code(s): R53.83 - Other fatigue (5) HTN (hypertension) Status: Chronic Qualifiers: Hypertension type: primary hypertension Qualified Code(s): I10 - Essential (primary) hypertension (6) GERD (gastroesophageal reflux disease) Status: Chronic Qualifiers: Esophagitis presence: esophagitis presence not specified Qualified Code(s): K21.9 - Gastro-esophageal reflux disease without esophagitis (7) Gout Status: Chronic Qualifiers: Gout site: unspecified site Gout etiology: unspecified cause Chronicity: chronic Presence of tophus: without tophus Qualified Code(s): M1A.9XX0 - Chronic gout, unspecified, without tophus (tophi) (8) History of AAA (abdominal aortic aneurysm) repair Status: Chronic
--- NOTE | 2022-12-16 16:20 | DR.OPNOTE ---
OP NOTE Pre-Op Diagnosis: Anemia and weakness Post-Op Diagnosis: normal stomach ,esophagus and duodenum Procedure Date Date Of Procedure: 12/16/22 Procedure: PROCEDURE: ESOPHAGODUODENOSCOPY WITH BIOPSY NARRATIVE : Patient was taken to the endoscopy suite and placed in the left lateral position. He was given intravenous sedation supervised by myself. Time out for the procedure obtained. Bite Block placed in the mouth. Endoscope introduced through the mouth into the esophagus and into the stomach. Stomach was insufflated. Stomach shows no abnormality and there is no evidence of bleeding or healing ulceration. The duodenum was normal. J maneuver showed no hiatal hernia or problems of the fundus of the stomach. Biopsy obtained of the antrum for H. pylori testing. Scope withdrawn. Patient tolerated this well. Anesthesia Comment: MAC Findings: as above Specimen/Pathology: Biopsy antrum for H.pylori testing Type of Fluids Used:: Lactated Ringers EBL: 0 Complications:: none Needle/Sponge Count:: correct Disposition/Condition: Pt. tolerated procedure without difficulty. Taken to his room in stable condition.
[2022-12-16] MEDS: RESTORIL CAP 15 MG PO PRN (20:56)
[2022-12-16] MEDS: CRESTOR TAB 10 MG PO SCH (20:57)
[2022-12-17] MEDS: NS 1,000 ML IV 1,000 ML IV SCH (05:03)
[2022-12-17 05:25] LABS: BASOPHILS # (AUTO) 0.1 X10^3/uL (0.0-0.1); EOSINOPHILS # (AUTO) 0.3 x10^3/uL (0.0-0.2); EOSINOPHILS % (AUTO) 5.3 % (0.9-2.9); HEMATOCRIT 26.2 % (42.0-54.0); HEMOGLOBIN 8.3 g/dL (13.5-18.0); LYMPHOCYTES # (AUTO) 1.1 X10^3/uL (1.3-2.9); LYMPHOCYTES % (AUTO) 22.1 % (21.0-51.0); MEAN CORPUSCULAR HGB CONC 31.4 g/dL (33.0-35.0); MEAN CORPUSCULAR VOLUME 63.7 fL (80.0-100.0); MEAN PLATELET VOLUME 8.4 fL (7.4-11.0); MONOCYTES # (AUTO) 0.5 x10^3/uL (0.3-0.8); MONOCYTES % (AUTO) 10.6 % (0.0-13.0); RED BLOOD COUNT 4.12 X10^6/uL (4.7-6.0); RED CELL DISTRIBUTION WIDTH 18.4 % (11.6-16.5)
[2022-12-17 05:38] LABS: ALANINE AMINOTRANSFERASE 23 Units/L (12-78); ALBUMIN 3.1 g/dL (3.4-5.0); ALKALINE PHOSPHATASE 102 Units/L (46-116); ASPARTATE AMINO TRANSFERASE 20 Units/L (15-37); BLOOD UREA NITROGEN 11 mg/dL (7-18); CALCIUM 8.5 mg/dL (8.5-10.1); CARBON DIOXIDE 26.2 mmol/L (21-32); CHLORIDE 109 mmol/L (98-107); COR CA(FOR HYPOALB) 9.2 mg/dL (8.5-10.1); SODIUM 143 mmol/L (136-145); TOTAL PROTEIN 5.8 g/dL (6.4-8.2); eGFR NON BLACK RACES > 60 (>60)
[2022-12-17 05:51] LABS: ANISOCYTOSIS SLIGHT; HYPOCHROMASIA 1+; MICROCYTOSIS 2+; OVALOCYTES 1+; PLATELET MORPHOLOGY COMMENT NORMAL (NORMAL); SCHISTOCYTES SLIGHT
[2022-12-17] MEDS ORDERED: DIPRIVAN VIAL 20 ML ONE (07:31)
--- NOTE | 2022-12-17 07:44 | RAD ---
HISTORYShortness of breathSTUDYChest AP [id number]/2023FINDINGSHear t size is normal. Trisha are normal. Lung blanca are free of acute infiltrates. There is a focus of subsegmental atelectasis in the right lung base. Bony thorax is unremarkable.IMPRESSIONNo acute infiltratesSubsegmental atelectasis right lung baseElectronically signed by: RO BATISTA (Dec 17, 2022 07:36:22)
--- NOTE | 2022-12-17 07:53 | OR.IMMED ---
IMMEDIATE POST-OP NOTE Immediate Post-Op Note Pre-Op Diagnosis: anemia, ? of GI bleed Post-Op Diagnosis: sessile polyp right colon, mild sigmoid diverticulosis, no masses Procedure: flexible colonoscopy with polypectomy 1 Description of Procedure: see operative summary Surgeon/Bell Ringer: Fabienne Findings: as above Estimated Blood Loss: 0 Complications: none Progress Notes: Return to floor, restart diet
[2022-12-17] MEDS: ZYLOPRIM PO SCH (09:44)
[2022-12-17] MEDS: ZyrTEC TAB 10 MG PO SCH (09:44)
[2022-12-17] MEDS: LOPRESSOR TAB 25 MG PO SCH ×2 (09:45→09:57)
[2022-12-17] MEDS: PROTONIX INJ 40 MG VIAL IVP SCH (09:45)
[2022-12-17] MEDS: PEPCID 20 MG VIAL 20 MG in NS 50 ML IV 50 ML IV SCH (09:45)
[2022-12-17 11:47] VITALS: BP 127/63
--- NOTE | 2022-12-17 14:47 | DR.OPNOTE ---
OP NOTE Pre-Op Diagnosis: ? GI blood loss, anemia Post-Op Diagnosis: sessile right colon polyp, sigmoid diverticulosis, no active bleeding Procedure Date Date Of Procedure: 12/17/22 Procedure: PROCEDURE: FLEXIBLE COLONOSCOPY AND POLYPECTOMY X 1 OF SINGLE SESSILE RIGHT COLON POLYP NARRATIVE : Patient was taken to the endoscopy suite and placed in the left lateral position. He was given intravenous sedation supervised by myself. Time out for the procedure obtained . Flexible colonoscope introduced into the anus and advanced very carefully all the way to the cecum without difficulty. On withdrawing the scope there was one small sessile polyp in the right colon which was removed with biopsy forceps and it was sent for pathology. The colonoscopy completed showing only mild sigmoid diverticulosis. There was no active bleeding. The patient was taken to his room. Type of Anesthesia: Local (0.5% Marcaine ) Anesthesia Comment: plus MAC Findings: one sessile polyp right colon, mild sigmoid diverticulosis, no active bleeding Specimen/Pathology: polypectomy x 1 from right colon Type of Fluids Used:: Lactated Ringers EBL: none Complications:: none Needle/Sponge Count:: correct Disposition/Condition: Pt. tolerated procedure without difficulty. Taken back to his room in stable condition.
== END 2022-12-17 11:48 | disposition home health service (06) ==
LOC: MED/SURG
PROVIDERS: ADMIT Internal Medicine; ATTEND Internal Medicine
DX: I10 Essential (primary) hypertension; K21.9 Gastro-esophageal reflux disease without esophagitis; D50.0 Iron deficiency anemia secondary to blood loss (chronic); R53.83 Other fatigue; M1A.9XX0 Chronic gout, unspecified, without tophus (tophi); K92.1 Melena; K57.30 Diverticulosis of large intestine without perforation or abscess without bleeding; R53.1 Weakness; Z98.890 Other specified postprocedural states